=== PATIENT | male | born 1980 | race Caucasian/White ===

== ENCOUNTER 2023-06-23 17:22 | Emergency (ER) | payer OTHER ==
[2023-06-23] MEDS ORDERED: DEXAMETHASONE SOD PHOSPHATE/PF 10 MG/ML SDV ONE (17:34)
[2023-06-23 17:39] VITALS: BP 137/75; PULSE 71; RESP 18; TEMP 98.8; BMI 25.7
[2023-06-23] MEDS ORDERED: FAMOTIDINE 20 MG TABLET PO ONE (18:12)
[2023-06-23] MEDS ORDERED: FAMOTIDINE 20 MG TABLET ONE (18:18)
== END 2023-06-23 20:12 | disposition home or self-care (01) ==
LOC: FER 17:22
DX: T63.441A Toxic effect of venom of bees, accidental (unintentional), initial encounter (principal); R21 Rash and other nonspecific skin eruption; R22.0 Localized swelling, mass and lump, head
CPT/HCPCS: 99283-25